=== PATIENT | female | born 1985 | race Hispanic/Latino ===

== ENCOUNTER 2016-12-26 13:38 | Emergency (ER) | payer OTHER ==
[~2016-12-26] VITALS: Ht 152.4 cm; Wt 77.6 kg
[2016-12-26 13:59] VITALS: BP 163/81
== END 2016-12-26 15:47 | disposition left against medical advice (07) ==
LOC: M ED 14:05
DX: Z04.6 Encounter for general psychiatric examination, requested by authority (principal); Z53.29 Procedure and treatment not carried out because of patient's decision for other reasons